=== PATIENT | male | born 1940 | race Caucasian/White ===

== ENCOUNTER 2018-05-30 15:31 | Emergency (ER) | payer MEDICARE, OTHER ==
[2018-05-30 15:31] VITALS: BMI 22.3
[2018-05-30 17:37] LABS: BASO # 0.1 K/uL (0.0-0.2); BASO % 1.7 % (0.0-2.0); EOS # 0.1 K/uL (0.0-0.7); EOS % 2.9 % (0.0-4.0); HEMOGLOBIN 9.7 g/dL (12.0-18.0); LYMPH # 1.8 K/uL (1.0-4.3); LYMPH % 39.4 % (20.0-40.0); MEAN CELL VOLUME 107.8 fl (80.0-94.0); MEAN CORPUSCULAR HEMOGLOBIN 36.1 pg (27.0-31.0); MEAN CORPUSCULAR HGB CONC 33.5 g/dL (33.0-37.0); MEAN PLATELET VOLUME 11.4 fl (7.2-11.7); MONO # 0.6 K/uL (0.0-0.8); MONO % 13.4 % (0.0-10.0); NEUT # 1.9 K/uL (1.8-7.0); NEUT % 42.6 % (50.0-75.0); NRBC % 0.1 % (0.0-0.0); RBC 2.7 Mil/uL (4.40-5.90); RED CELL DISTRIBUTION WIDTH 16.9 % (11.5-14.5); WHITE BLOOD COUNT 4.4 K/uL (4.8-10.8)
--- NOTE | 2018-05-30 17:37 | RAD ---
Date of service: 05/30/2018 HISTORY: DIZZINESS, LOWER EXTREM SWELLING COMPARISON: 06/09/2013. TECHNIQUE: Chest PA and lateral FINDINGS: LUNGS: No active pulmonary disease. PLEURA: No significant pleural effusion identified. No pneumothorax apparent. CARDIOVASCULAR: No radiographic findings to suggest acute or significant cardiovascular disease. OSSEOUS STRUCTURES: No significant abnormalities. VISUALIZED UPPER ABDOMEN: Normal. OTHER FINDINGS: None. IMPRESSION: No active disease. No significant interval change compared to the prior examination(s).
[2018-05-30 17:52] LABS: ALB/GLOB RATIO 1.2 (1.0-2.1); ALBUMIN 4.4 g/dL (3.5-5.0); ALT/SGPT 35 U/L (21-72); AST/SGOT 42 U/L (17-59); BLOOD UREA NITROGEN 33 mg/dl (9-20); CALCIUM 9.1 mg/dL (8.4-10.2); GFR AFRICAN-AMERICAN > 60; GFR NON-AFRICAN AMERICAN 53
[2018-05-30 17:58] LABS: B-TYPE NATRIURETIC PEPTIDE 267 pg/ml (0-900)
[2018-05-30 18:04] LABS: INR 0.9 (0.9-1.2); PARTIAL THROMBOPLASTIN TIME 30.7 Seconds (25.6-37.1); PROTHROMBIN TIME 10.3 Seconds (9.8-13.1)
--- NOTE | 2018-05-30 18:18 | US ---
Date of service: 05/30/2018 PROCEDURE: Bilateral lower extremity venous duplex Doppler. HISTORY: LE swelling and tenderness COMPARISON: None available. TECHNIQUE: Bilateral common femoral, superficial femoral, popliteal and posterior tibial veins were evaluated. Flow was assessed with color Doppler, compressibility, assessment of phasic flow and augmentation response. FINDINGS: COMMON FEMORAL VEIN: Right CFV: Unremarkable. Left CFV: Unremarkable. SUPERFICIAL FEMORAL VEIN: Right SFV: Unremarkable. Left SFV: Unremarkable. POPLITEAL VEIN: Right Popliteal: Unremarkable. Left Popliteal: Unremarkable. POSTERIOR TIBIAL VEIN: Right PTV: Unremarkable. Left PTV: Unremarkable. OTHER FINDINGS: None. IMPRESSION: No evidence of deep venous thrombosis.
[2018-05-30 20:25] VITALS: BP 145/77; PULSE 63; RESP 15; TEMP 98.4; O2SAT 99
--- NOTE | 2018-05-30 21:07 | ED PDOC ---
Lower Extremity Pain/Injury Time Seen by Provider: 05/30/18 16:22 Chief Complaint (Nursing): Lower Extremity Problem/Injury Chief Complaint (Provider): Lower Extremity Problem/Injury History Per: Patient History/Exam Limitations: no limitations Onset/Duration Of Symptoms: Persistent (x3 weeks), Worse Since (x2 days) Current Symptoms Are (Timing): Still Present Additional Complaint(s): 77 year old male presents to the ED for evaluation of bilateral swelling to his lower extremities, onset of 3 weeks. Patient states in the last 2 days, he has been experiencing more discomfort with bleeding from the varicose veins ( resolved upon arrival to ED). He denies taking any medication prior to arrival, chest pain, dizziness, numbness, weakness, headache, cough, nausea, vomiting, diarrhea, abdominal pain, orthopnea or dyspnea. Patient reports compliance with Plavix. PMD: Dr. Vicky Larose Past Medical History Reviewed: Historical Data, Nursing Documentation, Vital Signs Vital Signs: Last Vital Signs Temp 98.4 F 05/30/18 20:24 Pulse 63 05/30/18 20:24 Resp 15 05/30/18 20:24 BP 145/77 05/30/18 20:24 Pulse Ox 99 05/30/18 20:24 - Medical History PMH: Anemia, Back Problems (Herniated Disc), Benign Prostatic Hyperplasia, CAD, Emphysema, HTN, Hyperlipidemia, Peripheral Edema, TIA Denies: Diabetes - Family History Family History: States: Unknown Family Hx - Social History Current smoker - smoking cessation education provided: No Alcohol: None Drugs: Denies - Immunization History Hx Tetanus Toxoid Vaccination: (unk) Hx Influenza Vaccination: No Hx Pneumococcal Vaccination: (unk) - Home Medications Home Medications: Ambulatory Orders Medication Instructions Recorded Atenolol 25 mg PO DAILY 09/26/13 Cardura 2 mg PO DAILY 09/26/13 Creon 1 tab PO DAILY 09/26/13 Ecotrin 81 mg PO DAILY 09/26/13 Plavix 75 mg PO DAILY 09/26/13 Zocor 40 mg PO HS 09/26/13 - Allergies Allergies/Adverse Reactions: Allergies Allergy/AdvReac Type Severity Reaction Status Date / Time gluten Allergy RASH Verified 05/30/18 16:12 iodine Allergy RASH Verified 05/30/18 16:12 lactose Allergy RASH Verified 05/30/18 16:12 latex Allergy RASH Verified 05/30/18 16:12 plastic AdvReac ITCHING Uncoded 05/30/18 16:12 Review of Systems ROS Statement: Except As Marked, All Systems Reviewed And Found Negative Cardiovascular: Negative for: Chest Pain Respiratory: Negative for: Cough, Shortness of Breath Gastrointestinal: Negative for: Nausea, Vomiting, Abdominal Pain, Diarrhea Musculoskeletal: Positive for: Leg Pain (bilateral discomfort with swelling and bleeding varicose veins) Neurological: Negative for: Weakness, Numbness, Headache, Dizziness Physical Exam - Reviewed Nursing Documentation Reviewed: Yes Vital Signs Reviewed: Yes - Physical Exam Comments: GENERAL APPEARANCE: Patient is awake, alert, oriented x 3, in no acute distress. SKIN: Warm, dry; (-) cyanosis. LOWER EXTREMITY: (+) 1+ pitting edema bilaterally with good distal pulses. (+) venous stasis changes to bilateral LE. Mid-calf tenderness bilaterally, (-) palpable cord, (-) erythema, or (-) warmth. (+) normal ROM of bilateral LE with [id number] scab on lateral distal aspect of left LE. CARDIOVASCULAR: (+) distal pulse. NEUROLOGIC: (+) distal sensation. - Laboratory Results Result Diagrams: 05/30/18 17:25 05/30/18 17:25 - ECG O2 Sat by Pulse Oximetry: 99 (RA) Pulse Ox Interpretation: Normal Medical Decision Making Medical Decision Making: Initial Impression: Bilateral lower extremity edema R/O DVT vs. CHF Initial Plan: * EKG * BNP * CMP * Lact acid, plasma * CBC * D Dimer * PTT * PT * CXR * US duplex LE vein (EAN) * DC 193 Time: 1719 --CXR FINDINGS: LUNGS: No active pulmonary disease. PLEURA: No significant pleural effusion identified. No pneumothorax apparent. CARDIOVASCULAR: No radiographic findings to suggest acute or significant cardiovascular disease. OSSEOUS STRUCTURES: No significant abnormalities. VISUALIZED UPPER ABDOMEN: Normal. OTHER FINDINGS: None. IMPRESSION: No active disease. No significant interval change compared to the prior examination(s). Time: 1721 --EKG: Sinus bradycardia. No ST elevation. Left BBB. Time: 1815 --US duplex LE (ean) FINDINGS: COMMON FEMORAL VEIN: Right CFV: Unremarkable. Left CFV: Unremarkable. SUPERFICIAL FEMORAL VEIN: Right SFV: Unremarkable. Left SFV: Unremarkable. POPLITEAL VEIN: Right Popliteal: Unremarkable. Left Popliteal: Unremarkable. POSTERIOR TIBIAL VEIN: Right PTV: Unremarkable. Left PTV: Unremarkable. OTHER FINDINGS: None. IMPRESSION: No evidence of deep venous thrombosis. Scribe Attestation: Documented by Unique Echevarria, acting as a scribe for THIERNO Griggs. Provider Scribe Attestation: All medical record entries made by the Scribe were at my direction and personally dictated by me. I have reviewed the chart and agree that the record accurately reflects my personal performance of the history, physical exam, medical decision making, and the department course for this patient. I have also personally directed, reviewed, and agree with the discharge instructions and disposition. Disposition - Clinical Impression Clinical Impression: Lower extremity edema, Varicose vein of leg, Peripheral edema - Disposition Referrals: Vicky Larose MD [Family Provider] - Condition: STABLE Additional Instructions: FOLLOW UP WITH PMD IN 1-2 DAYS FOR FURTHER EVALUATION. RETURN TO ED WITH ANY NEW OR WORSENING SYMPTOMS. ELEVATE LOWER EXTREMITIES. DECREASE SALT INTAKE. Instructions: Varicose Veins and Other Vein Disease in the Legs, Dependent Edema (DC), Swelling Forms: [employer] (Guatemalan) Print Language: TELUGU
--- NOTE | 2018-05-31 15:08 | CARD ---
APPROVED REPORT Date of service: 05/30/2018 EKG Measurement Heart [id number] <Conclusion> Sinus bradycardia Left bundle branch block Abnormal ECG
== END 2018-05-30 22:30 | disposition home or self-care (01) ==
LOC: H.ER 15:31
DX: R60.0 Localized edema (principal); I83.90 Asymptomatic varicose veins of unspecified lower extremity; E78.5 Hyperlipidemia, unspecified; I10 Essential (primary) hypertension; J43.9 Emphysema, unspecified; Z86.73 Personal history of transient ischemic attack (TIA), and cerebral infarction without residual deficits

== ENCOUNTER 2018-06-28 22:10 | Emergency (ER) | payer MEDICARE, OTHER ==
[2018-06-28 22:10] VITALS: BMI 22.3
[2018-06-28 22:34] VITALS: O2SAT 98
[2018-06-28] MEDS ORDERED: Barium Sulfate Susp 2.1% w/v, 2.0% w/w 450 mL Bottle PO ONE ×3 (23:03→23:07)
--- NOTE | 2018-06-28 23:18 | ED PDOC ---
HPI: Abdomen Time Seen by Provider: 06/28/18 22:40 Chief Complaint (Nursing): Abdominal Pain Chief Complaint (Provider): Abdominal Pain History Per: Patient History/Exam Limitations: no limitations Onset/Duration Of Symptoms: Days (x3) Additional Complaint(s): Patient is a 77 y/o male with history of hypertension and CAD, who presents to the ED complaining of abdominal pain, onset x3 days ago. Patient states he had associated diarrhea but since has gotten better and become less frequent. Diarrhea episode was watery and non-bloody. Patient denies fever, rectal bleeding, vomiting, nausea, back pain. Patient reports he took Amoxicillin at home which he was prescribed in the past for his teeth; he states the pain improved a little better. Patient additionally reports that his belly is distended and that he has pimples on his nose and all over his body. PMD: Vicky Larose Past Medical History Reviewed: Historical Data, Nursing Documentation, Vital Signs Vital Signs: Last Vital Signs Temp 98.3 F 06/29/18 01:29 Pulse 74 06/29/18 01:29 Resp 17 06/29/18 01:29 BP 136/84 06/29/18 01:29 Pulse Ox 98 06/29/18 01:29 - Medical History PMH: Anemia, Back Problems (Herniated Disc), Benign Prostatic Hyperplasia, CAD, Diabetes, Emphysema, HTN, Hyperlipidemia, Peripheral Edema, TIA - Surgical History Surgical History: No Surg Hx - Family History Family History: States: Unknown Family Hx - Immunization History Hx Tetanus Toxoid Vaccination: (unk) Hx Influenza Vaccination: No Hx Pneumococcal Vaccination: (unk) - Home Medications Home Medications: Ambulatory Orders Medication Instructions Recorded Atenolol 25 mg PO DAILY 09/26/13 Cardura 2 mg PO DAILY 09/26/13 Creon 1 tab PO DAILY 09/26/13 Ecotrin 81 mg PO DAILY 09/26/13 Plavix 75 mg PO DAILY 09/26/13 Zocor 40 mg PO HS 09/26/13 Doxycycline Monohydrate 100 mg PO BID 7 Days #14 tablet 06/29/18 - Allergies Allergies/Adverse Reactions: Allergies Allergy/AdvReac Type Severity Reaction Status Date / Time gluten Allergy RASH Verified 06/28/18 22:32 iodine Allergy RASH Verified 06/28/18 22:32 lactose Allergy RASH Verified 06/28/18 22:32 latex Allergy RASH Verified 06/28/18 22:32 plastic AdvReac ITCHING Uncoded 06/28/18 22:32 Review of Systems ROS Statement: Except As Marked, All Systems Reviewed And Found Negative Constitutional: Negative for: Fever Gastrointestinal: Positive for: Abdominal Pain, Diarrhea. Negative for: Nausea , Vomiting, Rectal Pain, Other (rectal bleeding) Musculoskeletal: Negative for: Back Pain Skin: Positive for: Other (pimples) Physical Exam - Reviewed Nursing Documentation Reviewed: Yes Vital Signs Reviewed: Yes - Physical Exam Appears: Positive for: Non-toxic, No Acute Distress Head Exam: Positive for: ATRAUMATIC, NORMOCEPHALIC Skin: Negative for: Normal Color (small foliculitis to nose, no discharge or purulence) Eye Exam: Positive for: EOMI, Normal appearance, PERRL Neck: Positive for: Normal, Painless ROM, Supple Cardiovascular/Chest: Positive for: Regular Rate, Rhythm. Negative for: Murmur Respiratory: Positive for: Normal Breath Sounds. Negative for: Respiratory Distress Gastrointestinal/Abdominal: Positive for: Tenderness (epigastric). Negative for : Distended Back: Positive for: Normal Inspection. Negative for: L CVA Tenderness, R CVA Tenderness Extremity: Positive for: Normal ROM, Other (papule on right forearm; small pustule on left shoulder without discharge or fluctuance). Negative for: Pedal Edema, Deformity Neurologic/Psych: Positive for: Alert, Oriented. Negative for: Motor/Sensory Deficits - Laboratory Results Result Diagrams: 06/29/18 00:10 06/28/18 23:20 - ECG O2 Sat by Pulse Oximetry: 98 (RA) Pulse Ox Interpretation: Normal Medical Decision Making Medical Decision Making: Time: 23:03 Impression: Abdominal pain Differenitla included but not limited to gastritis, pancreatitis, cholecystitis , small bowel obstruction Skin condition is likely foliculitis. Initial Plan: --CT Abd Pelvis --CMP --Lipase -CBC w/ diff --Readi-Cat 2 Scribe Attestation: Documented by Kei Hurst acting as a scribe for Cami Ferrari MD Provider Scribe Attestation: All medical record entries made by the Scribe were at my direction and personally dictated by me. I have reviewed the chart and agree that the record accurately reflects my personal performance of the history, physical exam, medical decision making, and the department course for this patient. I have also personally directed, reviewed, and agree with the discharge instructions and disposition. Disposition - Clinical Impression Clinical Impression: Inguinal hernia, Rash - Patient ED Disposition Is Patient to be Admitted: Transfer of Care Counseled Patient/Family Regarding: Studies Performed, Diagnosis - Disposition Referrals: Vicky Larose MD [Family Provider] - Disposition: Transfer of Care Disposition Time: 23:59 Condition: STABLE Prescriptions: Doxycycline Monohydrate 100 mg PO BID 7 Days #14 tablet Instructions: Inguinal and Femoral (Groin) Hernias, Skin Rash (DC) Patient Signed Over To: Rayshawn Hahn
[2018-06-28 23:54] LABS: ALB/GLOB RATIO 1.2 (1.0-2.1); ALBUMIN 4.7 g/dL (3.5-5.0); CALCIUM 8.8 mg/dL (8.4-10.2)
[2018-06-29 00:14] LABS: BASO # 0.1 K/uL (0.0-0.2); BASO % 1.3 % (0.0-2.0); EOS # 0.1 K/uL (0.0-0.7); EOS % 2.8 % (0.0-4.0); HEMOGLOBIN 9.9 g/dL (12.0-18.0); LYMPH # 1.8 K/uL (1.0-4.3); LYMPH % 40.4 % (20.0-40.0); MEAN CELL VOLUME 105.8 fl (80.0-94.0); MEAN CORPUSCULAR HEMOGLOBIN 35.5 pg (27.0-31.0); MEAN CORPUSCULAR HGB CONC 33.5 g/dL (33.0-37.0); MEAN PLATELET VOLUME 11.4 fl (7.2-11.7); MONO # 0.5 K/uL (0.0-0.8); MONO % 11.7 % (0.0-10.0); NEUT % 43.8 % (50.0-75.0); NRBC % 0.1 % (0.0-0.0); RBC 2.78 Mil/uL (4.40-5.90); RED CELL DISTRIBUTION WIDTH 16.3 % (11.5-14.5); WHITE BLOOD COUNT 4.5 K/uL (4.8-10.8)
--- NOTE | 2018-06-29 00:50 | ED PDOC ---
"- Laboratory Results Result Diagrams: 06/29/18 00:10 06/28/18 23:20 - ECG O2 Sat by Pulse Oximetry: 98 (RA) Medical Decision Making Medical Decision Making: Time: 00:00 Patient care endorsed to Dr. Hahn from Dr. Ferrari pending labs and CT abdomen. 1:00 EXAM: CT Abdomen and Pelvis Without Intravenous Contrast EXAM DATE/TIME: 06/28/2018 11:24 PM CLINICAL HISTORY: 77 years old, male; Pain; Abdominal pain; Generalized; Additional info: Abdominal pain diarrhea? TECHNIQUE: Axial computed tomography images of the abdomen and pelvis without intravenous contrast. All CT scans at this facility use at least one of these dose optimization techniques: automated exposure control; mA and/or kV adjustment per patient size (includes targeted exams where dose is matched to clinical indication); or iterative reconstruction. Coronal and sagittal reformatted images were created and reviewed. COMPARISON: No relevant prior studies available. FINDINGS: Lung bases: Unremarkable. No mass. No consolidation. ABDOMEN: Liver: Unremarkable. Gallbladder and bile ducts: Unremarkable. No calcified stones. No ductal dilation. Pancreas: Unremarkable. No ductal dilation. Spleen: Unremarkable. No splenomegaly. Adrenals: Unremarkable. No mass. Kidneys and ureters: Left kidney upper pole simple 6.8 cm cyst. Right kidney upper pole 3.8 cm simple cyst. No stones. No hydronephrosis. Stomach and bowel: Small left inguinal hernia contains a short loop of small bowel without evidence of obstruction. Diverticulosis is most pronounced in the sigmoid colon. No mucosal thickening. PELVIS: Appendix: No findings to suggest acute appendicitis. Bladder: Urinary bladder diverticula. No stones. Reproductive: Unremarkable as visualized. ABDOMEN and PELVIS: Intraperitoneal space: Unremarkable. No free air. No significant fluid collection. CALVIN VELOZ | Preliminary Radiology Report GOVERNMENT AFFAIRS RESEARCHER (QA) DISCREPANCY? If there is a discrepancy between the preliminary and final interpretation, please notify [facility] via [email or web address]. If you do not have access to our QA portal, call our QA team at [phone] CONFIDENTIALITY STATEMENT This report is intended only for the use of the referring physician, and only in accordance with law, If you received this in error, call [phone] Page 2 of 2 Bones/joints: No acute fracture. No dislocation. Soft tissues: Fat-containing right inguinal hernia. Vasculature: Moderate atherosclerotic calcifications are present in the abdominal aorta. No abdominal aortic aneurysm. Lymph nodes: Unremarkable. No enlarged lymph nodes. IMPRESSION: 1. No acute obstructive or inflammatory process in the abdomen or pelvis. 2. Small left inguinal hernia contains a short loop of small bowel without evidence of obstruction. 3. Fat-containing right inguinal hernia. Patient resting comfortably in bed, no distress, vitals stable, states he's feeling well. Patient is aware of hernias. Will prescribe doxycycline for rash , will give CT report to patient and refer to PMD. ----- Scribe Attestation: Documented by Kevin Eldridge, acting as a scribe for Rayshawn Hahn MD. Provider Scribe Attestation: All medical record entries made by the Scribe were at my direction and personally dictated by me. I have reviewed the chart and agree that the record accurately reflects my personal performance of the history, physical exam, medical decision making, and the department course for this patient. I have also personally directed, reviewed, and agree with the discharge instructions and disposition. Disposition - Clinical Impression Clinical Impression: Inguinal hernia, Rash - POA Present On Arrival: None - Disposition Referrals: Vicky Larose MD [Family Provider] - Disposition: Routine/Home Disposition Time: 01:14 Condition: IMPROVED Prescriptions: Doxycycline Monohydrate 100 mg PO BID 7 Days #14 tablet Instructions: Inguinal and Femoral (Groin) Hernias, Skin Rash (DC) Forms: [employer] (Amharic)"
[2018-06-29 02:31] VITALS: BP 136/84; PULSE 74; RESP 17; TEMP 98.3
--- NOTE | 2018-06-29 08:25 | CT ---
Date of service: 06/28/2018 PROCEDURE: CT Abdomen and Pelvis without intravenous contrast HISTORY: abdominal pain diarrhea? COMPARISON: 08/08/2014 TECHNIQUE: Without contrast.. Contrast dose: 0 Radiation dose: Total exam DLP = 231.80 mGy-cm. This CT exam was performed using one or more of the following dose reduction techniques: Automated exposure control, adjustment of the mA and/or kV according to patient size, and/or use of iterative reconstruction technique. FINDINGS: LOWER THORAX: Minimal linear scar/ atelectasis in right lower lobe, likely are due to lack of interval change since 2014. LIVER: Unremarkable. No gross lesion or ductal dilatation. GALLBLADDER AND BILE DUCTS: Unremarkable. PANCREAS: Unremarkable. No gross lesion or ductal dilatation. SPLEEN: Unremarkable. ADRENALS: Unremarkable. No mass. KIDNEYS AND URETERS: Right upper pole low-density renal mass, 3.8 cm, measuring 9 Hounsfield units. Likely cysts though this has increased from 2.9 cm in 2014. Therefore, further evaluation with renal ultrasound is advised. Left upper pole renal cortical cyst, 6.9 cm, measuring 12 Hounsfield units. Previously this measured 7.3 cm. No other renal mass. No renal calculus or hydronephrosis. VASCULATURE: Unremarkable. No aortic aneurysm. BOWEL: Moderate retained feces. Sigmoid diverticulosis. No evidence of diverticulitis. No bowel obstruction. APPENDIX: Unremarkable. Normal appendix. PERITONEUM: Right inguinal hernia containing only mesenteric fat and no bowel. Small left inguinal hernia containing short segment of nonobstructed bowel, herniating only into the proximal segment of the inguinal canal. LYMPH NODES: Unremarkable. No enlarged lymph nodes. BLADDER: Two small bladder diverticulum, 1 at the dome and 1 at the left anterior aspect. No mural thickening. REPRODUCTIVE: Normal prostate BONES: No acute fracture. OTHER FINDINGS: None. IMPRESSION: Bilateral probable renal cysts. Enlargement of right renal cyst since prior examination of 2013 noted. Further evaluation with renal ultrasound advised. Two small bladder diverticulae ear noted. Right inguinal hernia containing only mesenteric fat and no herniated bowel. Small left inguinal hernia containing nonobstructed loop of bowel. Retained stool. Sigmoid diverticulosis. The preliminary findings for this examination were reported by Lucky Sort at 12:42 a.m. on 06/29/2018. There is concurrence of this report with the preliminary findings.
== END 2018-06-29 01:31 | disposition home or self-care (01) ==
LOC: H.ER 22:10
DX: K40.90 Unilateral inguinal hernia, without obstruction or gangrene, not specified as recurrent (principal); R21 Rash and other nonspecific skin eruption; E11.9 Type 2 diabetes mellitus without complications; E78.5 Hyperlipidemia, unspecified; I10 Essential (primary) hypertension; N28.1 Cyst of kidney, acquired; Z86.73 Personal history of transient ischemic attack (TIA), and cerebral infarction without residual deficits

== ENCOUNTER 2018-07-24 14:04 | Emergency (ER) | payer MEDICARE, OTHER ==
[2018-07-24 14:07] VITALS: BMI 22.3
[2018-07-24 14:11] VITALS: BP 148/72; PULSE 72; RESP 18; TEMP 98.2; O2SAT 100
--- NOTE | 2018-07-24 14:28 | ED PDOC ---
HPI: Skin/Bite Injury Time Seen by Provider: 07/24/18 14:13 Chief Complaint (Nursing): Abnormal Skin Integrity Chief Complaint (Provider): Rash History Per: Patient Additional Complaint(s): Arturo Bryson is a 77 year old male who presents to the emergency department for evaluation of a rash to right upper arm onset for several days. Patient reports he was seen here x2 weeks ago for skin rash and was given Rx for doxycycline. Patient states symptoms went away for a week but a couple of days ago he noticed a rash to right upper arm. He denies any fever, chills or other medical complaints. PMD: Dr. Larose Past Medical History Reviewed: Historical Data, Nursing Documentation, Vital Signs Vital Signs: Last Vital Signs Temp 98.2 F 07/24/18 14:09 Pulse 72 07/24/18 14:09 Resp 18 07/24/18 14:09 BP 148/72 07/24/18 14:09 Pulse Ox 100 07/24/18 14:33 - Medical History PMH: Anemia, Back Problems (Herniated Disc), Benign Prostatic Hyperplasia, CAD, Diabetes, Emphysema, HTN, Hyperlipidemia, Peripheral Edema, TIA - Surgical History Surgical History: No Surg Hx - Family History Family History: States: No Known Family Hx - Living Arrangements Living Arrangements: With Family - Social History Current smoker - smoking cessation education provided: No Alcohol: None Drugs: Denies - Home Medications Home Medications: Ambulatory Orders Medication Instructions Recorded Atenolol 25 mg PO DAILY 09/26/13 Cardura 2 mg PO DAILY 09/26/13 Creon 1 tab PO DAILY 09/26/13 Ecotrin 81 mg PO DAILY 09/26/13 Plavix 75 mg PO DAILY 09/26/13 Zocor 40 mg PO HS 09/26/13 Doxycycline Monohydrate 100 mg PO BID 7 Days #14 tablet 06/29/18 Cephalexin [Keflex] 500 mg PO TID #21 capsule 07/24/18 Sulfamethoxazole/Trimethoprim 1 tab PO BID #14 tab 07/24/18 [Bactrim DS 800 mg-160 mg] - Allergies Allergies/Adverse Reactions: Allergies Allergy/AdvReac Type Severity Reaction Status Date / Time gluten Allergy RASH Verified 07/24/18 14:09 iodine Allergy RASH Verified 07/24/18 14:09 lactose Allergy RASH Verified 07/24/18 14:09 latex Allergy RASH Verified 07/24/18 14:09 plastic AdvReac ITCHING Uncoded 07/24/18 14:09 Review of Systems ROS Statement: Except As Marked, All Systems Reviewed And Found Negative Constitutional: Negative for: Fever, Chills Skin: Positive for: Rash (right upper arm) Physical Exam - Reviewed Nursing Documentation Reviewed: Yes Vital Signs Reviewed: Yes - Physical Exam Appears: Positive for: Well, Non-toxic, No Acute Distress Head Exam: Positive for: ATRAUMATIC, NORMAL INSPECTION, NORMOCEPHALIC Skin: Positive for: Normal Color, Warm, Dry, Rash (Cluster of pustular lesions to medial right upper arm with localized erythema, no erythematous streak) Eye Exam: Positive for: Normal appearance Cardiovascular/Chest: Positive for: Regular Rate, Rhythm Respiratory: Positive for: Normal Breath Sounds. Negative for: Respiratory Distress Extremity: Positive for: Normal ROM (upper and lower extremities). Negative for : Deformity, Swelling Neurologic/Psych: Positive for: Alert, Oriented. Negative for: Motor/Sensory Deficits - ECG O2 Sat by Pulse Oximetry: 100 (RA) Pulse Ox Interpretation: Normal Medical Decision Making Medical Decision Making: Time: 14:13 Initial Impression: Boils to right arm Plan: Patient with superficial boils to right arm. Prescriptions for Keflex and Bactrim provided. Patient was instructed to wash area daily with soap and water and monitor for worsening symptoms. Advised wound check in 2-3 days. Patient aware he can return any time if acutely worse. Scribe Attestation: Documented by Wil Umana, acting as a scribe for Fauzia Mccrary PA-C Provider Scribe Attestation: All medical record entries made by the Scribe were at my direction and personally dictated by me. I have reviewed the chart and agree that the record accurately reflects my personal performance of the history, physical exam, medical decision making, and the department course for this patient. I have also personally directed, reviewed, and agree with the discharge instructions and disposition. Disposition - Clinical Impression Clinical Impression: Boil of upper extremity - Patient ED Disposition Is Patient to be Admitted: No Counseled Patient/Family Regarding: Diagnosis, Need For Followup, Rx Given - Disposition Referrals: Vicky Larose MD [Staff Provider] - Disposition: Routine/Home Disposition Time: 14:36 Condition: STABLE Additional Instructions: Take prescription meds as directed. Wash affected area daily with soap and water. Tylenol for pain as needed. Wound recheck in 2-3 days. Prescriptions: Cephalexin [Keflex] 500 mg PO TID #21 capsule Sulfamethoxazole/Trimethoprim [Bactrim DS 800 mg-160 mg] 1 tab PO BID #14 tab Instructions: Boil Forms: [employer] (Nigerian)
== END 2018-07-24 15:27 | disposition home or self-care (01) ==
LOC: H.ER 14:04
DX: L02.423 Furuncle of right upper limb (principal); E11.9 Type 2 diabetes mellitus without complications; E78.5 Hyperlipidemia, unspecified; I10 Essential (primary) hypertension